=== PATIENT | female | born 1990 | race Caucasian/White ===

== ENCOUNTER 2024-08-10 11:39 | Emergency (ER) | payer OTHER ==
[~2024-08-10] VITALS: Ht 157.5 cm; Wt 72.6 kg
[2024-08-10 11:45] VITALS: BP 134/90; PULSE 111; RESP 21; TEMP 97.8; O2SAT 98
[2024-08-10 11:55] VITALS: BP 119/80; PULSE 100; RESP 20; TEMP 97.9; O2SAT 97
[2024-08-10] MEDS ORDERED: KETOROLAC 30 MG/ML VIAL ONE (13:10)
[2024-08-10] MEDS: KETOROLAC 30 MG/ML VIAL IVP ONE (13:11)
[2024-08-10] MEDS ORDERED: LIDOCAINE 5% 1 EA PATCH TP ONE (14:05)
[2024-08-10] MEDS ORDERED: IBUP-2218 PO (14:24)
[2024-08-10 14:26] VITALS: BP 122/73; PULSE 85; RESP 20; TEMP 97.9; O2SAT 99
== END 2024-08-10 14:23 | disposition home or self-care (01) ==
LOC: MED 11:39
DX: S63.501A Unspecified sprain of right wrist, initial encounter (principal); R07.89 Other chest pain; R03.0 Elevated blood-pressure reading, without diagnosis of hypertension; R10.11 Right upper quadrant pain; M25.511 Pain in right shoulder; Z79.899 Other long term (current) drug therapy; V89.2XXA Person injured in unspecified motor-vehicle accident, traffic, initial encounter; Y93.89 Activity, other specified; Y92.410 Unspecified street and highway as the place of occurrence of the external cause; Y99.8 Other external cause status
CPT/HCPCS: 71101; 73030; 73110; 96374; 99284; J1885; Q0092